=== PATIENT | male | born 1975 | race Caucasian/White ===

== ENCOUNTER 2019-03-28 15:51 | Outpatient (CLI) | payer BC ==
--- NOTE | 2019-03-28 16:06 | RAD ---
XR Humerus Lt 2 View STANDARD HISTORY: Left upper arm pain FINDINGS: The left humerus is intact.
== END 2019-03-28 15:52 | disposition home or self-care (01) ==
LOC: BICRAD 15:51
PROVIDERS: ATTEND Internal Medicine Cardiovascular Disease
DX: M79.622 Pain in left upper arm (principal)